=== PATIENT | male | born 1935 | race Caucasian/White ===

== ENCOUNTER 2017-04-17 09:09 | Inpatient (IN) ==
--- NOTE | 2017-04-17 09:24 | Emergency Department Note ---
Arrival - Arrival Chief Complaint: Weakness Stated Complaint: Fall ED Nursing Triage Note: Pt c/o weakness and ?fever x 2 days, then pt fell into floor last night and laid there all night. Pt denies injury from fall. Mode of Arrival: Stretcher Source: Patient, RN Notes Reviewed Time Seen by Provider: 04/17/17 09:22 - History of Present Illness HPI Narrative: Patient is an 82-year-old white male who was brought to the emergency department from home by EMS after he had a shaking chill and attempted to get up to go to the bathroom. The patient fell on the way to the bathroom and was unable to get up off the floor. He denies any specific complaints other than feeling generally weak. He denies any nausea or vomiting. He states that he has been eating and drinking well. He denies any diarrhea. Onset (ago): day(s) (1) Allergies/Adverse Reactions: Allergies Allergy/AdvReac Type Severity Reaction Status Date / Time No Known Allergies Allergy Verified 02/09/16 10:39 Home Medications: Home Medications Medication Instructions Recorded Confirmed Type Amiodarone Tab [Cordarone Tab] 200 mg PO BEDTIME 04/17/17 04/17/17 History Aspirin [Ecotrin] 81 mg PO BEDTIME 04/17/17 04/17/17 History Review of System - Review of System 12 point system: reviewed and no additional remarkable complaints except as stated - Review of System Constitutional: Present: chills, fever (Subjective) Respiratory: Absent: cough, respiratory distress Cardiovascular: Absent: chest pain Gastrointestinal: Absent: abdominal pain, nausea, vomiting Medical,Surgical,& Family Hx - Medical History Cardio: History of: CHF, Hypertension, Cardiovascular Problems (Dr Robles) Neurology: No history of: Seizures - Family History Family History: Reports;: Family Diabetes (diabetes and hypertension in his mom) , Family Hypertension - Social History Smoking Status: Current every day smoker Functional capacity: independent ambulation Exam Vital Signs: Vital Signs Temperature 99.1 F 04/17/17 09:09 Pulse Rate 73 04/17/17 09:09 Respiratory Rate 20 04/17/17 09:21 Blood Pressure 148/72 04/17/17 09:09 O2 Sat by Pulse Oximetry 96 04/17/17 09:09 GENERAL: This is a well-nourished well-developed white male chronically ill- appearing in no apparent distress. VITAL SIGNS: Reviewed HEENT: Head is atraumatic and normocephalic. Pupils are equal round react to light. Extraocular movements are intact. Oropharynx is benign with moist mucous membranes. NECK: Neck is soft and supple without tenderness. There are no masses. There is no lymphadenopathy. LUNGS: Lungs are clear to auscultation. Chest rises symmetrically. There is no chest wall tenderness. CV: Heart is regular rate and rhythm without murmurs rubs or gallops. ABDOMEN: Abdomen is soft, nontender to palpation. There are no abdominal abnormal masses palpated. There is no organomegaly. Bowel sounds are present and active. SKIN: Skin is warm and dry. No rash. EXTREMITIES: Patient has full range of motion without tenderness. There is no pedal edema. NEUROLOGIC: Awake alert and oriented 4. Cranial nerves II through XII are grossly intact. Motor is 5 over 5 in all extremities bilaterally. Course - Consultations Consultation #1: Discussed with hospitalist. Patient will be admitted to their service. Time: 11:39 Results - Labs CBC & BMP: 04/17/17 09:02 Lab Results: I have reviewed the patients labs - Diagnostic Findings Procedure: CT: image reviewed by me, report reviewed by me (Prominent lateral and third ventricles on CT of the head consistent with normal pressure hydrocephalus.) Disposition Clinical Impression: Generalized weakness, Fall Case discussed with: patient Disposition: Still a Patient Condition: Stable
--- NOTE | 2017-04-17 10:22 | CT Report ---
CT brain Indication: Fall, generalized weakness Comparison: None available Technique: Axial CT imaging of the brain is performed without contrast with 3 mm increments. Findings: No evidence of hemorrhage, mass mass effect midline shift or acute infarct seen. There is moderate diffuse cerebral atrophy. There are areas of decreased density seen within the white matter. Otherwise the brain parenchyma attenuation and differentiation appears within normal limits. The lateral ventricles and third ventricle appear increased in caliber slightly out of proportion atrophy. Cisterns are normal in caliber. No cranial or skull base abnormality is identified. Impression: Prominent lateral and third ventricles slightly out of proportion atrophy, could indicate normal pressure hydrocephalus. No other acute findings. This CT exam was performed using one or more the following dose reduction techniques: Automated exposure control, adjustment of the MA and/or KV according to patient size, or use of iterative reconstruction technique. PROCEDURE INTERPRETED AT [facility] DEPARTMENT OF RADIOLOGY Final Report Signed by: Dr. Ronni Verduzco
[2017-04-17 11:14] LABS: Apearance,Urine CLEAR (Clear); Bilirubin,Urine Negative (Negative); Blood, Urine Small mg/dL (Negative); Glucose,Urine (UA) Negative (Negative); Ketones,Urine Negative (Negative); Mucus,Urine Occasional /LPF (Occasional); Nitrite,Urine Negative (Negative); Protein,Urine 100 MG/DL; RBC,Urine 3 /HPF (0-4); Urine Color Yellow (Yellow); Urine Specific Gravity 1.014 (1.001-1.035); Urine Urobilinogen < 2.0 EU/DL (0.2-1.0); WBC,Urine 1 /HPF (0-6)
--- NOTE | 2017-04-17 11:14 | XRay Report ---
XR chest 1V portable Indication: Weakness Comparison: 27 November 2015 Findings: The heart and mediastinum are normal in size and configuration. The pulmonary vascularity is normal in caliber. No lung infiltrates, effusions, pneumothorax or other abnormality is demonstrated. Impression: No acute cardiopulmonary disease. PROCEDURE INTERPRETED AT [facility] DEPARTMENT OF RADIOLOGY Final Report Signed by: Dr. Ronni Verduzco
[2017-04-17 11:16] LABS: Albumin 4.1 G/DL (3.4-5.0); Bilirubin,Total 1.6 MG/DL (0.2-1.0); Calcium 9.4 MG/DL (8.5-10.1); Osmolality,Calculated 276.7 MOS/KG (273-304); Potassium 4.1 MMOL/L (3.5-5.1); Total Protein 7.3 G/DL (6.4-8.3)
--- NOTE | 2017-04-17 13:09 | Hospitalist History & Physical ---
<Annette Mcbride - Last Filed: 04/17/17 12:50> Assessment and Plan - Time spent with patient Time spent with patient: Greater than 30 minutes (1) Fall Status: Acute Assessment and plan: 04/17/17 Admit for further evaluation of sliding out of bed at 11 p.m. and too weak to get up from floor without loss of consciousness or dizziness. Urinalysis negative for leukocytes/infection: start IV fluids CBC is pending collection and results (will adjust plan as needed after reviewing results) PRN anti-emetics PRN anti-pyrectics repeat a.m. labs will discuss with DR Baker for further recommendations with care. Current Visit: Yes (2) Generalized weakness Status: Acute Current Visit: Yes (3) CHF (congestive heart failure) Status: Acute Current Visit: No (4) Hypertension Status: Acute Current Visit: No History of Present Illness Chief complaint: generalized weakness History of present illness: Mr. Ceja is a 82 year old white male w/PMHx of hypertension, CHF presented to the ED via EMS from home for further evaluation c/o slid out of bed onto floor and was too weak to get up. He verbalized that he laid in the floor from 11 o'clock last night until he called 911 at about 8 this morning for help because he was still "too weak" to get out of floor. He reports fever, chills and nausea x2 days. He denies loss of consciousness, dizziness, dysuria, cough , chest pain, vomiting, sweating, or headache. IN ED: Creatinine 1.50, Glucose 107, Urinalysis negative. Head CT: prominent lateral and third ventricles slightly out of proportion atrophy, indicate normal pressure hydrocephalus, nothing acute. CXR: nothing acute. VS: Low grade temp 99.1, HR 73, RR 20, BP 148/72, SAT 96%. He lives alone (with dog), daughter lives in [place]. He states his only close family is a 97 y/o sister. He normally ambulates without assistance. He smokes 1 pack per day cigarettes, denies alcohol use, or drug use. PCP: Dr Wilcox Does NOT take Flu vaccine. After discussion with Dr Vang in the ED and Dr Baker with Hospital Medicine it was agreed to admit patient for further evaluation. Home medications to be reviewed and reconciliation to follow. Home Medications Medication Instructions Recorded Confirmed Type Amiodarone Tab [Cordarone Tab] 200 mg PO BEDTIME 04/17/17 04/17/17 History Aspirin [Ecotrin] 81 mg PO BEDTIME 04/17/17 04/17/17 History Allergies Allergy/AdvReac Type Severity Reaction Status Date / Time No Known Allergies Allergy Verified 02/09/16 10:39 Medical,Surgical,& Family Hx - Medical History Cardio: History of: CHF, Hypertension, Cardiovascular Problems (Dr Robles) Neurology: No history of: Seizures - Family History Family History: Reports;: Family Diabetes (diabetes and hypertension in his mom) , Family Hypertension - Social History Smoking Status: Current every day smoker (1 pack per day) Frequency of Alcohol Use: None Type of Drug Use: None Marital Status: Single Lives With:: Alone Functional capacity: independent ambulation 12 point system: reviewed and no additional remarkable complaints except as stated - Constitutional Constitutional: Present: chills, fatigue, fever(s), weakness. Absent: excessive sweating, frequent falls, headache(s) - Cardiovascular Cardiovascular: Absent: chest pain at rest, chest pain with activity, dyspnea, dyspnea on exertion, edema - Genitourinary Genitourinary: Absent: dysuria, flank pain Exam - Constitutional Vitals: Period Temp Pulse Resp BP Sys/Tavarez Pulse Ox Last 24 Hr 99.1 F-99.1 F 73-73 20-20 148-148/72-72 96 General appearance: no acute distress, over weight - Head Head exam: Present: normal inspection - Eye Eye exam: Present: EOMI Pupils: Present: PAOLO - ENT ENT exam: Present: normal exam - Neck Neck exam: Present: normal inspection. Absent: thyromegaly - Respiratory Respiratory exam: Present: clear to auscultation bilaterally. Absent: rhonchi, stridor, wheezes - Cardiovascular Cardiovascular exam: Present: regular rate and rhythm - GI/Abdominal GI/Abdominal exam: Present: normal bowel sounds, soft. Absent: tenderness, rebound - Extremities Exam Extremities exam: Present: normal inspection, full ROM, other (equal strength bilaterally upper and lower extremities). Absent: edema - Neurological Exam Neurological exam: Present: alert, oriented X3 - Psychiatric Psychiatric exam: Present: normal affect, normal mood. Absent: agitated, anxious - Skin Skin exam: Present: normal color, warm, dry Results - Labs CBC & BMP: 04/17/17 09:02 Lab Results: I have reviewed the past 24 hour labs Labs: CBC pending collection and results: will adjust plan if becomes necessary according to results <Emiliano Baker - Last Filed: 04/17/17 14:52> History of Present Illness History of present illness: Mr. Ceja is a 82 year old male who is being admitted to the hospital with generalized weakness. The patient lives by himself. He states that he slid out of bed last night and was too weak to call for assistance until this morning. At the present time, his problems appear to be more social than acutely medical. I have interviewed and examined the patient and reviewed all available laboratory and radiographic test results. I agree with the assessment and plans of Annette Mcbride NP. The patient will be admitted to the hospital. Physical therapy and social service will be consulted. Exam - Constitutional Vitals: Period Temp Pulse Resp BP Sys/Tavarez Pulse Ox Last 24 Hr 99.1 F-99.1 F 73-79 17-20 144-148/67-72 95-96 Results - Labs CBC & BMP: 04/17/17 09:02
[2017-04-17] MEDS ORDERED: ACETAMINOPHEN 325 MG TABLET PO PRN (13:21)
[2017-04-17] MEDS ORDERED: ONDANSETRON 4 MG/2 ML VIAL IV PRN (13:21)
[2017-04-17] MEDS: SODIUM CHLORIDE 0.9% 1,000 ML IV SCH (15:57)
[2017-04-17 17:51] LABS: Basophils # 0.1 10*3/uL (0.0-0.2); Basophils % 0.2 % (0.0-0.8); Hematocrit 46.3 VOL% (42.0-52.0); Hemoglobin 15.7 GM/DL (14.0-18.0); Immature Granulocytes % 0.8 %; Immature Granulocytes Absolute 0.17 #; Lymphocytes # 0.7 10*3/uL (1.4-4.0); Lymphocytes % 3.5 % (21.2-54.2); Mean Corpuscular HGB Conc 33.9 GM/DL (32-36); Mean Corpuscular Hemoglobin 30 PG (27-34); Mean Corpuscular Volume 88.2 FL (87-102); Mean Platelet Volume 9.7 FL (9.6-12.0); Monocytes % 5.1 % (1.7-12.7); Neutrophils # 18.5 10*3/uL (1.4-7.4); Neutrophils % 90.4 % (38.7-73.9); Platelet Count 131 T/CUMM (130-400); Red Blood Count 5.25 MC/CUMM (3.8-5.5); Red Cell Distribution Width 14.8 % (9.3-17.3); White Blood Count 20.5 T/CUMM (4-12)
[2017-04-17 18:01] LABS: INR 1.1; PT Patient Result 11.9 SECS; Partial Thromboplastin Time 33.2 SECS (0-40)
[2017-04-17 19:18] LABS: Band Neutrophils 2 % (0-10); Lymphocytes 5 % (20-55); Platelet Estimate Decreased; Segmented Neutrophils 87 % (50-85); Total Cells Counted 100
[2017-04-18 05:31] LABS: Basophils # 0.1 10*3/uL (0.0-0.2); Basophils % 0.3 % (0.0-0.8); Eosinophils % 0.2 % (0.00-10.9); Hematocrit 44.1 VOL% (42.0-52.0); Hemoglobin 14.8 GM/DL (14.0-18.0); Immature Granulocytes % 0.7 %; Immature Granulocytes Absolute 0.13 #; Lymphocytes # 1.5 10*3/uL (1.4-4.0); Lymphocytes % 8.7 % (21.2-54.2); Mean Corpuscular HGB Conc 33.6 GM/DL (32-36); Mean Corpuscular Hemoglobin 30 PG (27-34); Mean Corpuscular Volume 88.2 FL (87-102); Mean Platelet Volume 10.5 FL (9.6-12.0); Monocytes # 1.4 10*3/uL (0.11-0.8); Monocytes % 8.2 % (1.7-12.7); Neutrophils # 14.4 10*3/uL (1.4-7.4); Neutrophils % 81.9 % (38.7-73.9); Platelet Count 113 T/CUMM (130-400); Red Cell Distribution Width 14.8 % (9.3-17.3); White Blood Count 17.6 T/CUMM (4-12)
[2017-04-18 05:53] LABS: Calcium 8.9 MG/DL (8.5-10.1); Magnesium 2.2 MG/DL (1.8-2.4); Osmolality,Calculated 277.7 MOS/KG (273-304); Potassium 3.7 MMOL/L (3.5-5.1)
[2017-04-18 05:59] LABS: Band Neutrophils 2 % (0-10); Giant Platelets Few; Hypochromasia Slight; Lymphocytes 6 % (20-55); Platelet Estimate Decreased; Segmented Neutrophils 83 % (50-85); Total Cells Counted 100
--- NOTE | 2017-04-18 08:03 | Hospitalist Progress Note ---
Assessment and Plan (1) Generalized weakness Status: Chronic Assessment and plan: Patient has no acute medical problem at the present time. His major problem is that of weakness. I have consulted case management for possible placement in a swing bed or a skilled nursing. Current Visit: Yes Hospitalist: Subjective Interval history: His major complaint is that of weakness. He lives alone. He has no immediately available friends or family. He is unsure if he will be able to continue living alone. I will consult case management for possible placement in a swing bed or skilled nursing. Exam - Constitutional Vitals: Period Temp Pulse Resp BP Sys/Tavarez Pulse Ox Last 24 Hr 98.1 F-100.6 F 71-101 17-24 140-190/67-96 94-98 General appearance: no acute distress - Head Head exam: Present: normal inspection - Neck Neck exam: Present: normal inspection - Respiratory Respiratory exam: Present: clear to auscultation bilaterally - Cardiovascular Cardiovascular exam: Present: regular rate and rhythm - GI/Abdominal GI/Abdominal exam: Present: normal bowel sounds, soft, other (Nontender with no palpable masses or hepatosplenomegaly.) - Extremities Exam Extremities exam: Present: normal inspection - Neurological Exam Neurological exam: Present: alert, oriented X3 - Skin Skin exam: Present: normal color, warm, intact Results - Labs CBC & BMP: 04/18/17 05:04 04/18/17 05:04
[2017-04-18] MEDS: PANTOPRAZOLE 40 MG TABLET PO SCH (12:16)
[2017-04-18] MEDS: ZINC OXIDE PASTE 113 GM TUBE TOP SCH ×2 (13:45→22:38)
[2017-04-18] MEDS ORDERED: SODIUM CHLORIDE 0.9% 1,000 ML IV SCH (23:00)
[2017-04-18] MEDS: SODIUM CHLORIDE 0.9% 1,000 ML IV SCH (23:08)
--- NOTE | 2017-04-19 08:15 | Discharge Summary ---
Hospital Course - Hospital Course Hospital Course: Mr. Ceja is a 82 year old white male w/PMHx of hypertension, CHF presented to the ED via EMS from home for further evaluation c/o slid out of bed onto floor and was too weak to get up. He verbalized that he laid in the floor from 11 o'clock last night until he called 911 at about 8 this morning for help because he was still "too weak" to get out of floor. He reports fever, chills and nausea x2 days. He denies loss of consciousness, dizziness, dysuria, cough , chest pain, vomiting, sweating, or headache. IN ED: Creatinine 1.50, Glucose 107, Urinalysis negative. Head CT: prominent lateral and third ventricles slightly out of proportion atrophy, indicate normal pressure hydrocephalus, nothing acute. CXR: nothing acute. VS: Low grade temp 99.1, HR 73, RR 20, BP 148/72, SAT 96%. He lives alone (with dog), daughter lives in [place]. He states his only close family is a 97 y/o sister. He normally ambulates without assistance. He smokes 1 pack per day cigarettes, denies alcohol use, or drug use. The patient was admitted to the hospital for weakness. Case management and I discussed with him the advisability of [facility] placement since he lives by himself and appears unable to to do so anymore. He adamantly refused [facility] placement and demanded to be discharged from the hospital. Diagnosis - Discharge Diagnosis (1) Generalized weakness Status: Acute Discharge Plan - Discharge Data Disposition: Disch To Home/Self Care Condition at Discharge: Stable Discharge Diet: advance to your usual diet Activity: resume usual activities as tolerated - Discharge Medications Continue Amiodarone Tab [Cordarone Tab] 200 mg PO BEDTIME Aspirin [Ecotrin] 81 mg PO BEDTIME - Follow Up or Referral - Forms/Instructions Exam - Constitutional Vitals: Period Temp Pulse Resp BP Sys/Tavarez Pulse Ox Last 24 Hr 97.3 F-98.3 F 62-69 18-21 137-162/70-75 92-97 Discharge Results Procedures and tests throughout hospitalization: Pending Orders 04/20/17 04:00 Basic Metabolic Panel IN AM Comp Blood Count Auto Diff IN AM DS: Provider Date of admission: 04/17/17 12:11 Primary care physician: Nate Wilcox MD Attending physician on admission: Emiliano Baker Consults: 04/17/17 13:24 Consult to Case Mgmt/Social Srvs [CONS] Routine Reason for Case Mgmt/Social Srvs: Discharge Planning 04/17/17 17:35 Consult to Physical Therapy [CONS] Routine Reason for Physical Therapy: Weakness OT [Consult to Occupational Therapy] [CONS] Routine Reason for Occupational Therapy: Weakness 04/18/17 07:31 Consult to Case Mgmt/Social Srvs [CONS] Routine Reason for Case Mgmt/Social Srvs: Discharge Planning Consult Comment: He is ready for discharge 04/18/17 07:58 Consult to Physical Therapy [CONS] Routine Reason for Physical Therapy: Evaluate and Treat Discharging clinician: Emiliano Baker
[2017-04-19 08:41] VITALS: BP 129/58
[2017-04-19] MEDS: ZINC OXIDE PASTE 113 GM TUBE TOP SCH (09:59)
[2017-04-19] MEDS: PANTOPRAZOLE 40 MG TABLET PO SCH (09:59)
== END 2017-04-19 11:05 | disposition home or self-care (01) | DRG 948 ==
LOC: EDBD → EDUNIT# → N.ED 09:09 → N.EDINP 12:11 → N.2E 15:27